=== PATIENT | female | born 1995 | race Caucasian/White ===

== ENCOUNTER 2017-04-08 20:47 | Inpatient (IN) | payer OTHER ==
[~2017-04-08] VITALS: Ht 157.5 cm; Wt 97.1 kg
[2017-04-09 03:57] LABS: BILIRUBIN NEGATIVE; BLOOD NEGATIVE; COLOR YELLOW ((YELLOW)); GLUCOSE (STRIP) NEGATIVE; KETONES NEGATIVE; LEUKOCYTES NEGATIVE; NITRITE NEGATIVE; PROTEIN (STRIP) 30; SPECIFIC GRAVITY 1.024 (1.000-1.030); UROBILINOGEN 0.2 MG/DL (0.2-1.0)
[2017-04-09 04:01] LABS: ADD MIUA? NO; UCUL ADDED? NO
[2017-04-09 04:11] LABS: HEMATOCRIT 42.8 % (36.0-46.0); MCH 30.2 PG (29.0-34.0); MCHC 33.4 G/DL (30.0-36.0); MCV 90.5 FL (83-99); MEAN PLAT.VOLUME 10.6 uM^3 (9.5-12.4); PLATELET COUNT 236 K/uL (156-360); RBC DIS.WIDTH-CV 11.9 % (11.8-14.6); RBC DIS.WIDTH-SD 38.9 % (39-53); RED BLOOD COUNT 4.73 M/uL (3.80-5.20)
[2017-04-09 04:22] LABS: CHLORIDE 104 mEq/L (99-109); POTASSIUM 3.7 mEq/L (3.7-5.4); SODIUM 139 mEq/L (136-147)
[2017-04-09 04:24] LABS: GLUCOSE 84 mg/dL (70-99)
[2017-04-09 04:25] LABS: ANION GAP 11 MEQ/L (2-14)
[2017-04-09 04:26] LABS: TOTAL BILIRUBIN 0.6 mg/dL (0.0-1.0)
[2017-04-09 04:28] LABS: ALKALINE PHOSPHATASE 65 IU/L (3-129); GFR ESTIMATE (CALCULATED) > 59 mL/min/
[2017-04-09 04:29] LABS: UREA NITROGEN (BUN) 9 mg/dL (9-23)
[2017-04-09 04:37] LABS: QUANTITATIVE HCG < 4.0 MIU/ML
[2017-04-09 11:30] VITALS: BP 118/66
[2017-04-09 11:41] VITALS: BP 118/66
[2017-04-09] MEDS ORDERED: LAMICTAL100 MG PO (13:02)
[2017-04-09] MEDS ORDERED: SEROQUEL300 MG PO (13:07)
[2017-04-09] MEDS ORDERED: GLUCOPHAGE500 MG PO (13:08)
[2017-04-09] MEDS ORDERED: LEVEMIR FL100 UNIT/1 SC (13:09)
[2017-04-09] MEDS ORDERED: OMEPRAZOLE20 MG PO (13:10)
[2017-04-09 15:54] VITALS: BP 101/59
[2017-04-09 16:52] LABS: POINT-OF-CARE METER ID UU14188576
[2017-04-09 21:46] LABS: POINT-OF-CARE METER ID UU14188576; POINT-OF-CARE USER ID BHSSMG
[2017-04-10 06:22] LABS: POINT-OF-CARE METER ID UU14188576; POINT-OF-CARE USER ID BHSSMG
[2017-04-10 07:32] VITALS: BP 87/50
[2017-04-10 11:53] LABS: POINT-OF-CARE METER ID UU14188576; POINT-OF-CARE USER ID BHSTSA
[2017-04-10 16:11] VITALS: BP 107/55
[2017-04-10 16:47] LABS: POINT-OF-CARE METER ID UU14188576; POINT-OF-CARE USER ID BHSCRC
[2017-04-10 20:37] LABS: POINT-OF-CARE METER ID UU14188576; POINT-OF-CARE USER ID ENVTLS63
[2017-04-11 06:35] LABS: POINT-OF-CARE METER ID UU14188576; POINT-OF-CARE USER ID ENVTLS63
[2017-04-11 07:47] VITALS: BP 94/55
[2017-04-11 12:02] LABS: POINT-OF-CARE METER ID UU14188576
[2017-04-11 15:29] VITALS: BP 111/70
[2017-04-11 16:46] LABS: POINT-OF-CARE METER ID UU14188576; POINT-OF-CARE USER ID BHSMEW
[2017-04-11 20:42] LABS: POINT-OF-CARE METER ID UU14188576; POINT-OF-CARE USER ID BHSMEW
[2017-04-12 06:43] LABS: POINT-OF-CARE METER ID UU14188576
[2017-04-12 07:55] VITALS: BP 99/49
[2017-04-12] MEDS ORDERED: SEROQUEL300 MG PO (09:22)
[2017-04-12 12:26] LABS: POINT-OF-CARE METER ID UU14188576
== END 2017-04-12 14:25 | disposition home or self-care (01) | DRG 885 ==
LOC: EME 20:47 → EDOF 04-09 10:36 → 1WEST 04-09 10:36 → ENRESERV 04-09 11:27 → 1WEST 04-09 11:27
PROVIDERS: Physician Assistant; Psychiatry & Neurology Psychiatry
DX: F31.9 Bipolar disorder, unspecified (principal); F60.3 Borderline personality disorder; F19.21 Other psychoactive substance dependence, in remission; E66.9 Obesity, unspecified; Z68.39 Body mass index [BMI] 39.0-39.9, adult; R45.851 Suicidal ideations; E11.9 Type 2 diabetes mellitus without complications; F17.200 Nicotine dependence, unspecified, uncomplicated; Z91.5 Personal history of self-harm
CPT/HCPCS: 80053; 81003; 82948; 84443; 84702; 85027; 90686; 90839; 97150 GO; 97165 GO; 99281; 99285; J1815